=== PATIENT | male | born 2000 | race Caucasian/White ===

== ENCOUNTER 2022-04-13 10:40 | Inpatient (IN) ==
--- NOTE | 2022-04-13 11:11 | Emergency Department Note ---
History of Present Illness General Chief complaint: Weakness Stated complaint: NAUSEA, WEAKNESS, FAINT History of Present Illness Maximum Pain Intensity: 5 This is a 22-year-old male presenting to the emergency department with several complaints. He states that he has excessive thirst and urination. He is very fatigued, and feels like his fatigue is increasing over the past few weeks. The patient estimates that he is urinating every hour and is drinking more than a gallon of water every day. The patient recently began having emesis with eating or drinking, and now feels very weak and dehydrated. The patient does not have distinct pain anywhere, and considers himself usually healthy. He does report a history of celiac disease. He works out regularly and does not take medication on a regular basis. He does vape marijuana products. Minimal alcohol use. Home Medications Medication Instructions Recorded Confirmed Type Protein Powder 1 ea PO DIRECTED 04/13/22 04/13/22 History acetaminophen 325 mg tablet 650 mg PO QID PRN Pain 04/13/22 04/13/22 History (Tylenol) escitalopram oxalate 10 mg tablet 10 mg PO DAILY 04/13/22 04/13/22 History Allergies Allergy/AdvReac Type Severity Reaction Status Date / Time pollen extracts Allergy SNEEZING, Verified 04/13/22 15:21 ITCHY EYES gluten AdvReac celiac Verified 04/13/22 15:20 disease Laughing gas AdvReac Severe Nausea Uncoded 04/13/22 15:21 Past Med/Surg History Medical History Anxiety Celiac disease DKA, type 1 Marijuana user Nicotine dependence due to vaping tobacco product Surgical History No significant past surgical history Social History (Updated 04/13/22 @ 15:02 by Riley Johnson PA-C) Smoking Status: Current every day smoker Tobacco Type: E-cigarettes / Vaping Hx Alcohol Use: No Hx Substance Use: Yes (Marijuana) Preferred Language: Hebrew [employer] D[employer] Required: No Beliefs That Will Affect Care: None Current Living Situation: Family current occupational status: student Other Information That Helps Us Care for You: No Feels Safe at Home: Yes Safety Concerns: Feels Safe At This Time Physical Activity Frequency: Daily Do you think of yourself as: straight/heterosexual Sexual Orientation Comment: Monogamous girlfriend Review of Systems A total of 10 systems reviewed and were otherwise negative Physical Exam Vital Signs Vital Signs - 24 hr 04/13/22 10:50 04/13/22 11:26 04/13/22 11:26 Temperature 36.3 C L Temperature Source Temporal Artery Scan Pulse Rate 94 H Pulse Rate [Right Finger] 75 Respiratory Rate 18 15 Respiratory Effort / Characteristics Respiratory Depth Blood Pressure 135/89 Blood Pressure Mean 104 Pulse Oximetry 95 98 98 Oxygen Delivery Method Room Air Room Air Room Air Sepsis Recent Fever Within 48 Hours No Sepsis New/Unexplained Change in Mental Status No Sepsis Action Taken by Nursing No Action Required Pulse Oximetry Post Tiitration 04/13/22 11:37 04/13/22 13:16 Temperature Temperature Source Pulse Rate Pulse Rate [Right Finger] 77 Respiratory Rate 18 Respiratory Effort / Characteristics Non-Labored Respiratory Depth Normal Blood Pressure Blood Pressure Mean Pulse Oximetry 95 Oxygen Delivery Method Room Air Room Air Sepsis Recent Fever Within 48 Hours Sepsis New/Unexplained Change in Mental Status Sepsis Action Taken by Nursing Pulse Oximetry Post Tiitration 98 VITALS: Vitals are noted on the nurse's note and reviewed by myself. Vital signs stable. GENERAL: Ill appearing white male, who is clinically dehydrated. He has chapped lips and poor skin turgor. HEAD: Normocephalic atraumatic. EARS: External ear normal. External auditory canals clear, tympanic membranes pearly wick without erythema or effusion bilaterally. EYES: Pupils equal round and reactive to light and accommodation. Conjunctivae without injection, sclerae without icterus. Extraocular movements intact. NOSE: Patent, turbinates without inflammation or discharge. MOUTH: Mucous membranes dry. Tonsils are not enlarged. Pharynx without er ythema, blood, or exudate. Uvula midline. Airway patent. NECK: Supple without nuchal rigidity. No lymphadenopathy. No thyromegaly. Cervical spine is nontender. HEART: Regular rate and rhythm without murmurs gallops or rubs. LUNGS: Clear to auscultation bilaterally without wheezes, rales or rhonchi. No retractions or accessory muscle use. ABDOMEN: Positive normal bowel sounds x 4. Soft, nontender, without masses or organomegaly. No guarding or rebound tenderness. Course Administered Medications Insulin Human Regular 250 (units/ Sodium Chloride) 250 mls @ 5.4 mls/hr IV .Q24H [facility]; Protocol Stop: 05/13/22 12:44 Last Titration: 04/13/22 18:00 Dose: 5.4 units/hr, 5.4 mls/hr Documented By: DTT Co-signed By: RB Titration: 04/13/22 16:12 Dose: 5.4 units/hr, 5.4 mls/hr Documented By: DTT Co-signed By: BT Titration: 04/13/22 14:58 Dose: 5.4 units/hr, 5.4 mls/hr Documented By: MES Co-signed By: MH Titration: 04/13/22 13:56 Dose: 5.4 units/hr, 5.4 mls/hr Documented By: MES Co-signed By: MARTIN Admin: 04/13/22 12:50 Dose: 6.7 units/hr, 6.7 mls/hr Documented By: JORGE ALBERTO Co-signed By: MARTIN Potassium Chloride/Dextrose/Sod Cl (D5w And 1/2nss + 20meq Kcl) 20 meq in 1,000 mls @ 250 mls/hr IV .Q4H ANA Stop: 05/13/22 16:44 Last Admin: 04/13/22 16:50 Dose: 250 mls/hr Documented By: Admin: 04/13/22 16:48 Dose: Not Given Documented By: DTT Insulin Aspart (Insulin Aspart Per Unit) 0 units SC ACHS AAN Stop: 05/13/22 16:29 Last Admin: 04/13/22 16:47 Dose: Not Given Documented By: DTT Nicotine (Nicotine 21 Mg/24 Hr Tdsy) 21 mg TD QAM ANA Stop: 05/13/22 15:18 Last Admin: 04/13/22 17:24 Dose: Not Given Documented By: DTT Discontinued Medications Sodium Chloride (Nss 1000ml) 1,000 mls @ 999 mls/hr IV .Q1H1M ANA Stop: 04/13/22 13:07 Last Infusion: 04/13/22 13:28 Dose: 0 mls/hr Documented By: Admin: 04/13/22 12:24 Dose: 999 mls/hr Documented By: Infusion: 04/13/22 12:24 Dose: 999 mls/hr Documented By: Admin: 04/13/22 11:43 Dose: 999 mls/hr Documented By: MES Parenteral Electrolytes (Normosol-R) 1,000 mls @ 999 mls/hr IV .Q1H1M STA Stop: 04/13/22 14:20 Last Infusion: 04/13/22 14:39 Dose: 0 mls/hr Documented By: JORGE ALBERTO Admin: 04/13/22 13:27 Dose: 999 mls/hr Documented By: JORGE ALBERTO Parenteral Electrolytes (Normosol-R) 1,000 mls @ 250 mls/hr IV .Q4H ANA Stop: 05/13/22 15:18 Last Admin: 04/13/22 16:48 Dose: Not Given Documented By: MEHUL Menthol (Cough Drop (Sugar Free) Sheila 24 Sheila/1 Box) 1 sheila BUCCAL NOW STA Stop: 04/13/22 15:17 Last Admin: 04/13/22 16:46 Dose: 1 sheila Documented By: MEHUL Menthol (Cough Drop (Sugar Free) Sheila 24 Sheila/1 Box) 1 sheila BUCCAL NOW STA Stop: 04/13/22 15:20 Last Admin: 04/13/22 16:46 Dose: 1 sheila Documented By: MEHUL Miscellaneous (Stat Insulin Drip) 1 each N/A NOW STA Stop: 04/13/22 12:33 Last Admin: 04/13/22 13:19 Dose: Not Given Documented By: JORGE ALBERTO Miscellaneous (Pending D5 1/2ns+20meq Kcl Ivf) 1 each N/A Q2H [facility] Stop: 05/13/22 15:59 Last Admin: 04/13/22 16:48 Dose: Not Given Documented By: MEHUL Miscellaneous (Dka Goal Range 150-250 Mg/Dl) 1 each N/A ONE ONE Stop: 04/13/22 15:20 Last Admin: 04/13/22 16:46 Dose: 1 each Documented By: MEHUL Miscellaneous Information (Dc All Previously Ordered Diabetes Meds) 1 each N/A ONE ONE Stop: 04/13/22 15:20 Last Admin: 04/13/22 16:46 Dose: 1 each Documented By: MEHUL Ondansetron HCl (Ondansetron Inj 2 Mg/Ml 2 Ml Vial) 4 mg IV NOW STA Stop: 04/13/22 12:09 Last Admin: 04/13/22 12:14 Dose: 4 mg Documented By: JORGE ALBERTO Critical Care Time I have personally spent greater than 35 minutes of critical care time in the direct management of this patient. This includes bedside care, interpretation of diagnostic studies, and testing, discussion with consultants, patient, and family members, and other required patient management activities. This 35 minutes is in excess of all separately billable procedures. Medical Decision Making Differential Diagnosis Differential includes diabetes, acute coronary syndrome, myocardial infarction, CVA, TIA, anemia, infection, pneumonia, UTI, pyelonephritis, poor nutrition, dehydration, electrolyte disturbance,hypoglycemia. Laboratory Data Result diagrams: 04/13/22 11:20 04/13/22 15:48 Lab Results 04/13/22 04/13/22 04/13/22 Range/Units 11:20 11:20 11:20 WBC 11.48 H (4.8-10.8) K/ul RBC 6.06 (4.63-6.08) M/uL Hgb 17.3 (14.0-18.0) g/dl Hct 51.9 H (40.1-51.0) % MCV 85.6 (80.0-100.0) fL MCH 28.5 (25.0-34.0) pg MCHC 33.3 (32.0-36.0) g/dL RDW Std Deviation 39.3 (36.4-46.3) fL RDW Coeff of Juan 12.8 (11.5-14.5) % Plt Count 408 H (130-400) K/uL MPV 10.2 (9.4-12.4) fL Immature Gran % (Auto) 0.3 % Neut % (Auto) 81.5 % Lymph % (Auto) 15.2 % Long % (Auto) 2.5 % Eos % (Auto) 0.2 % Baso % (Auto) 0.3 % Neut # (Auto) 9.35 H (1.4-6.5) K/uL Lymph # (Auto) 1.74 (1.2-3.4) K/uL Long # (Auto) 0.29 (0.24-0.82) K/uL Eos # (Auto) 0.02 (0-0.50) K/uL Baso # (Auto) 0.04 (0-0.2) K/uL Immature Gran # (Auto) 0.04 H (0.00-0.02) K/uL VBG pH (7.36-7.41) VBG pCO2 (38-50) mmHg VBG pO2 mmHg VBG HCO3 mmol/L VBG O2 Saturation % VBG Base Excess mEq/L Sodium 143 (136-145) mmol/L Potassium 4.3 (3.5-5.1) mmol/L Chloride 98 (98-107) mmol/L Carbon Dioxide 13 L (21-32) mmol/L Anion Gap 32 H (3-11) BUN 23 (6-23) mg/dl Creatinine 1.24 (0.6-1.4) mg/dl Est Cr Clr Drug Dosing 89.2 ml/min Est GFR ( Amer) 95.7 ml/min Est GFR (Non-Af Amer) 82.6 ml/min BUN/Creatinine Ratio 18.5 (10-20) Glucose 484 H* (70-99(Fasting)) mg/dl POC Glucose (70-99) mg/dl Estimat Average Glucose mg/dl Hemoglobin A1c (4.5-5.6) % Calcium 10.9 H (8.5-10.1) mg/dl Magnesium 2.3 (1.7-2.4) mg/dl Total Bilirubin 0.5 (0.2-1.0) mg/dl AST 11 L (13-39) U/L ALT 14 (7-52) U/L Alkaline Phosphatase 104 (34-104) U/L Troponin I High Sens 4.1 (0-20) pg/ml Total Protein 9.8 H (6.0-8.3) gm/dl Albumin 5.6 H (3.4-5.0) gm/dl Globulin 4.2 H (2.5-4.0) gm/dl Albumin/Globulin Ratio 1.3 (0.9-2) Lipase 10 L (11-82) U/L TSH 0.462 (0.300-4.500) uIu/ml Urine Color Urine Appearance (Clear) Urine pH (4.5-7.5) Ur Specific [place] (1.000-1.030) Urine Protein (Negative) Urine Glucose (UA) (Negative) Urine Ketones (Negative) Urine Blood (Negative) Urine Nitrite (Negative) Urine Bilirubin (Negative) Urine Urobilinogen (Negative) Ur Leukocyte Esterase (Negative) Urine WBC (Auto) (0-5) /hpf Urine RBC (Auto) (0-4) /hpf U Hyaline Cast (Auto) (0-5) /lpf U Epithel Cells (Auto) (0-5) /lpf Urine Bacteria (Auto) (Negative) Urine Opiates Screen (Neg) Ur Methadone, Qual (Neg) Urine Barbiturates (Neg) Ur Phencyclidine (PCP) (Neg) U Amphetamin/Meth Scrn (Neg) MDMA (Ecstasy) Screen (Neg) U Benzodiazepines Scrn (Neg) Ur Cocaine Metabolite (Neg) U Marijuana (THC) Screen (Neg) Ethyl Alcohol mg/dL (<10.0) mg/dl Lyme Disease IgG Ab (Negative) Lyme Disease IgM Ab (Negative) Monoscreen (Negative) SARS-CoV-2, RNA, NAAT (NEGATIVE) 04/13/22 04/13/22 04/13/22 Range/Units 11:20 11:20 11:20 WBC (4.8-10.8) K/ul RBC (4.63-6.08) M/uL Hgb (14.0-18.0) g/dl Hct (40.1-51.0) % MCV (80.0-100.0) fL MCH (25.0-34.0) pg MCHC (32.0-36.0) g/dL RDW Std Deviation (36.4-46.3) fL RDW Coeff of Juan (11.5-14.5) % Plt Count (130-400) K/uL MPV (9.4-12.4) fL Immature Gran % (Auto) % Neut % (Auto) % Lymph % (Auto) % Long % (Auto) % Eos % (Auto) % Baso % (Auto) % Neut # (Auto) (1.4-6.5) K/uL Lymph # (Auto) (1.2-3.4) K/uL Long # (Auto) (0.24-0.82) K/uL Eos # (Auto) (0-0.50) K/uL Baso # (Auto) (0-0.2) K/uL Immature Gran # (Auto) (0.00-0.02) K/uL VBG pH (7.36-7.41) VBG pCO2 (38-50) mmHg VBG pO2 mmHg VBG HCO3 mmol/L VBG O2 Saturation % VBG Base Excess mEq/L Sodium (136-145) mmol/L Potassium (3.5-5.1) mmol/L Chloride (98-107) mmol/L Carbon Dioxide (21-32) mmol/L Anion Gap (3-11) BUN (6-23) mg/dl Creatinine (0.6-1.4) mg/dl Est Cr Clr Drug Dosing ml/min Est GFR ( Amer) ml/min Est GFR (Non-Af Amer) ml/min BUN/Creatinine Ratio (10-20) Glucose (70-99(Fasting)) mg/dl POC Glucose 440 H* (70-99) mg/dl Estimat Average Glucose mg/dl Hemoglobin A1c (4.5-5.6) % Calcium (8.5-10.1) mg/dl Magnesium (1.7-2.4) mg/dl Total Bilirubin (0.2-1.0) mg/dl AST (13-39) U/L ALT (7-52) U/L Alkaline Phosphatase (34-104) U/L Troponin I High Sens (0-20) pg/ml Total Protein (6.0-8.3) gm/dl Albumin (3.4-5.0) gm/dl Globulin (2.5-4.0) gm/dl Albumin/Globulin Ratio (0.9-2) Lipase (11-82) U/L TSH (0.300-4.500) uIu/ml Urine Color Urine Appearance (Clear) Urine pH (4.5-7.5) Ur Specific [place] (1.000-1.030) Urine Protein (Negative) Urine Glucose (UA) (Negative) Urine Ketones (Negative) Urine Blood (Negative) Urine Nitrite (Negative) Urine Bilirubin (Negative) Urine Urobilinogen (Negative) Ur Leukocyte Esterase (Negative) Urine WBC (Auto) (0-5) /hpf Urine RBC (Auto) (0-4) /hpf U Hyaline Cast (Auto) (0-5) /lpf U Epithel Cells (Auto) (0-5) /lpf Urine Bacteria (Auto) (Negative) Urine Opiates Screen (Neg) Ur Methadone, Qual (Neg) Urine Barbiturates (Neg) Ur Phencyclidine (PCP) (Neg) U Amphetamin/Meth Scrn (Neg) MDMA (Ecstasy) Screen (Neg) U Benzodiazepines Scrn (Neg) Ur Cocaine Metabolite (Neg) U Marijuana (THC) Screen (Neg) Ethyl Alcohol mg/dL < 10.0 (<10.0) mg/dl Lyme Disease IgG Ab Negative (Negative) Lyme Disease IgM Ab Negative (Negative) Monoscreen Positive A (Negative) SARS-CoV-2, RNA, NAAT (NEGATIVE) 04/13/22 04/13/22 04/13/22 Range/Units 11:20 11:20 11:20 WBC (4.8-10.8) K/ul RBC (4.63-6.08) M/uL Hgb (14.0-18.0) g/dl Hct (40.1-51.0) % MCV (80.0-100.0) fL MCH (25.0-34.0) pg MCHC (32.0-36.0) g/dL RDW Std Deviation (36.4-46.3) fL RDW Coeff of Juan (11.5-14.5) % Plt Count (130-400) K/uL MPV (9.4-12.4) fL Immature Gran % (Auto) % Neut % (Auto) % Lymph % (Auto) % Long % (Auto) % Eos % (Auto) % Baso % (Auto) % Neut # (Auto) (1.4-6.5) K/uL Lymph # (Auto) (1.2-3.4) K/uL Long # (Auto) (0.24-0.82) K/uL Eos # (Auto) (0-0.50) K/uL Baso # (Auto) (0-0.2) K/uL Immature Gran # (Auto) (0.00-0.02) K/uL VBG pH (7.36-7.41) VBG pCO2 (38-50) mmHg VBG pO2 mmHg VBG HCO3 mmol/L VBG O2 Saturation % VBG Base Excess mEq/L Sodium (136-145) mmol/L Potassium (3.5-5.1) mmol/L Chloride (98-107) mmol/L Carbon Dioxide (21-32) mmol/L Anion Gap (3-11) BUN (6-23) mg/dl Creatinine (0.6-1.4) mg/dl Est Cr Clr Drug Dosing ml/min Est GFR ( Amer) ml/min Est GFR (Non-Af Amer) ml/min BUN/Creatinine Ratio (10-20) Glucose (70-99(Fasting)) mg/dl POC Glucose (70-99) mg/dl Estimat Average Glucose 246 mg/dl Hemoglobin A1c 10.2 H (4.5-5.6) % Calcium (8.5-10.1) mg/dl Magnesium (1.7-2.4) mg/dl Total Bilirubin (0.2-1.0) mg/dl AST (13-39) U/L ALT (7-52) U/L Alkaline Phosphatase (34-104) U/L Troponin I High Sens (0-20) pg/ml Total Protein (6.0-8.3) gm/dl Albumin (3.4-5.0) gm/dl Globulin (2.5-4.0) gm/dl Albumin/Globulin Ratio (0.9-2) Lipase (11-82) U/L TSH (0.300-4.500) uIu/ml Urine Color Yellow Urine Appearance Clear (Clear) Urine pH 5.0 (4.5-7.5) Ur Specific [place] 1.032 H (1.000-1.030) Urine Protein 1+ H (Negative) Urine Glucose (UA) 3+ H (Negative) Urine Ketones 4+ H (Negative) Urine Blood Negative (Negative) Urine Nitrite Negative (Negative) Urine Bilirubin Negative (Negative) Urine Urobilinogen Negative (Negative) Ur Leukocyte Esterase Negative (Negative) Urine WBC (Auto) 1-5 (0-5) /hpf Urine RBC (Auto) 0-4 (0-4) /hpf U Hyaline Cast (Auto) 0 (0-5) /lpf U Epithel Cells (Auto) 5-10 H (0-5) /lpf Urine Bacteria (Auto) Negative (Negative) Urine Opiates Screen Neg (Neg) Ur Methadone, Qual Neg (Neg) Urine Barbiturates Neg (Neg) Ur Phencyclidine (PCP) Neg (Neg) U Amphetamin/Meth Scrn Neg (Neg) MDMA (Ecstasy) Screen Neg (Neg) U Benzodiazepines Scrn Neg (Neg) Ur Cocaine Metabolite Neg (Neg) U Marijuana (THC) Screen Pos H (Neg) Ethyl Alcohol mg/dL (<10.0) mg/dl Lyme Disease IgG Ab (Negative) Lyme Disease IgM Ab (Negative) Monoscreen (Negative) SARS-CoV-2, RNA, NAAT (NEGATIVE) 04/13/22 04/13/22 04/13/22 Range/Units 11:48 11:53 12:52 WBC (4.8-10.8) K/ul RBC (4.63-6.08) M/uL Hgb (14.0-18.0) g/dl Hct (40.1-51.0) % MCV (80.0-100.0) fL MCH (25.0-34.0) pg MCHC (32.0-36.0) g/dL RDW Std Deviation (36.4-46.3) fL RDW Coeff of Juan (11.5-14.5) % Plt Count (130-400) K/uL MPV (9.4-12.4) fL Immature Gran % (Auto) % Neut % (Auto) % Lymph % (Auto) % Long % (Auto) % Eos % (Auto) % Baso % (Auto) % Neut # (Auto) (1.4-6.5) K/uL Lymph # (Auto) (1.2-3.4) K/uL Long # (Auto) (0.24-0.82) K/uL Eos # (Auto) (0-0.50) K/uL Baso # (Auto) (0-0.2) K/uL Immature Gran # (Auto) (0.00-0.02) K/uL VBG pH 7.17 L (7.36-7.41) VBG pCO2 36 L (38-50) mmHg VBG pO2 37 mmHg VBG HCO3 13 mmol/L VBG O2 Saturation < 60.0 % VBG Base Excess -14.5 mEq/L Sodium (136-145) mmol/L Potassium (3.5-5.1) mmol/L Chloride (98-107) mmol/L Carbon Dioxide (21-32) mmol/L Anion Gap (3-11) BUN (6-23) mg/dl Creatinine (0.6-1.4) mg/dl Est Cr Clr Drug Dosing ml/min Est GFR ( Amer) ml/min Est GFR (Non-Af Amer) ml/min BUN/Creatinine Ratio (10-20) Glucose (70-99(Fasting)) mg/dl POC Glucose 403 H* (70-99) mg/dl Estimat Average Glucose mg/dl Hemoglobin A1c (4.5-5.6) % Calcium (8.5-10.1) mg/dl Magnesium (1.7-2.4) mg/dl Total Bilirubin (0.2-1.0) mg/dl AST (13-39) U/L ALT (7-52) U/L Alkaline Phosphatase (34-104) U/L Troponin I High Sens (0-20) pg/ml Total Protein (6.0-8.3) gm/dl Albumin (3.4-5.0) gm/dl Globulin (2.5-4.0) gm/dl Albumin/Globulin Ratio (0.9-2) Lipase (11-82) U/L TSH (0.300-4.500) uIu/ml Urine Color Urine Appearance (Clear) Urine pH (4.5-7.5) Ur Specific [place] (1.000-1.030) Urine Protein (Negative) Urine Glucose (UA) (Negative) Urine Ketones (Negative) Urine Blood (Negative) Urine Nitrite (Negative) Urine Bilirubin (Negative) Urine Urobilinogen (Negative) Ur Leukocyte Esterase (Negative) Urine WBC (Auto) (0-5) /hpf Urine RBC (Auto) (0-4) /hpf U Hyaline Cast (Auto) (0-5) /lpf U Epithel Cells (Auto) (0-5) /lpf Urine Bacteria (Auto) (Negative) Urine Opiates Screen (Neg) Ur Methadone, Qual (Neg) Urine Barbiturates (Neg) Ur Phencyclidine (PCP) (Neg) U Amphetamin/Meth Scrn (Neg) MDMA (Ecstasy) Screen (Neg) U Benzodiazepines Scrn (Neg) Ur Cocaine Metabolite (Neg) U Marijuana (THC) Screen (Neg) Ethyl Alcohol mg/dL (<10.0) mg/dl Lyme Disease IgG Ab (Negative) Lyme Disease IgM Ab (Negative) Monoscreen (Negative) SARS-CoV-2, RNA, NAAT NEGATIVE (NEGATIVE) 04/13/22 Range/Units 13:51 WBC (4.8-10.8) K/ul RBC (4.63-6.08) M/uL Hgb (14.0-18.0) g/dl Hct (40.1-51.0) % MCV (80.0-100.0) fL MCH (25.0-34.0) pg MCHC (32.0-36.0) g/dL RDW Std Deviation (36.4-46.3) fL RDW Coeff of Juan (11.5-14.5) % Plt Count (130-400) K/uL MPV (9.4-12.4) fL Immature Gran % (Auto) % Neut % (Auto) % Lymph % (Auto) % Long % (Auto) % Eos % (Auto) % Baso % (Auto) % Neut # (Auto) (1.4-6.5) K/uL Lymph # (Auto) (1.2-3.4) K/uL Long # (Auto) (0.24-0.82) K/uL Eos # (Auto) (0-0.50) K/uL Baso # (Auto) (0-0.2) K/uL Immature Gran # (Auto) (0.00-0.02) K/uL VBG pH (7.36-7.41) VBG pCO2 (38-50) mmHg VBG pO2 mmHg VBG HCO3 mmol/L VBG O2 Saturation % VBG Base Excess mEq/L Sodium (136-145) mmol/L Potassium (3.5-5.1) mmol/L Chloride (98-107) mmol/L Carbon Dioxide (21-32) mmol/L Anion Gap (3-11) BUN (6-23) mg/dl Creatinine (0.6-1.4) mg/dl Est Cr Clr Drug Dosing ml/min Est GFR ( Amer) ml/min Est GFR (Non-Af Amer) ml/min BUN/Creatinine Ratio (10-20) Glucose (70-99(Fasting)) mg/dl POC Glucose 308 H* (70-99) mg/dl Estimat Average Glucose mg/dl Hemoglobin A1c (4.5-5.6) % Calcium (8.5-10.1) mg/dl Magnesium (1.7-2.4) mg/dl Total Bilirubin (0.2-1.0) mg/dl AST (13-39) U/L ALT (7-52) U/L Alkaline Phosphatase (34-104) U/L Troponin I High Sens (0-20) pg/ml Total Protein (6.0-8.3) gm/dl Albumin (3.4-5.0) gm/dl Globulin (2.5-4.0) gm/dl Albumin/Globulin Ratio (0.9-2) Lipase (11-82) U/L TSH (0.300-4.500) uIu/ml Urine Color Urine Appearance (Clear) Urine pH (4.5-7.5) Ur Specific [place] (1.000-1.030) Urine Protein (Negative) Urine Glucose (UA) (Negative) Urine Ketones (Negative) Urine Blood (Negative) Urine Nitrite (Negative) Urine Bilirubin (Negative) Urine Urobilinogen (Negative) Ur Leukocyte Esterase (Negative) Urine WBC (Auto) (0-5) /hpf Urine RBC (Auto) (0-4) /hpf U Hyaline Cast (Auto) (0-5) /lpf U Epithel Cells (Auto) (0-5) /lpf Urine Bacteria (Auto) (Negative) Urine Opiates Screen (Neg) Ur Methadone, Qual (Neg) Urine Barbiturates (Neg) Ur Phencyclidine (PCP) (Neg) U Amphetamin/Meth Scrn (Neg) MDMA (Ecstasy) Screen (Neg) U Benzodiazepines Scrn (Neg) Ur Cocaine Metabolite (Neg) U Marijuana (THC) Screen (Neg) Ethyl Alcohol mg/dL (<10.0) mg/dl Lyme Disease IgG Ab (Negative) Lyme Disease IgM Ab (Negative) Monoscreen (Negative) SARS-CoV-2, RNA, NAAT (NEGATIVE) ECG Data Attestation: I personally reviewed and interpreted this ECG as follows: Indication: + weakness Additional Comments: Sinus bradycardia with marked sinus arrhythmia @[address] elevation RSR' or QR pattern in V1 suggests right ventricular conduction delay Borderline ECG No previous ECGs available MDM Narrative Physical exam and history were performed. Nursing notes, EMR, and Medication List were personally reviewed. Patient appears to have excessive thirst and urination. He has weight loss and recently began with emesis. He appears clinically very dehydrated and his story is quite concerning for diabetes. IV access was established and labs were obtained. He was hydrated with 2 L of normal saline immediately and given IV Zofran for his nausea. The patient's blood work is as above and was reviewed. He does have a slightly elevated white blood cell count of 11,000. He does not have a significant anemia. [id number] glucose was over 400 in the ER, and his lab glucose was 484. He is quite acidotic on VBG at 7.17. He has a notable anion gap of 32. Lipase and transaminases are not diagnostic. Troponin x1 is negative. TSH is euthyroid. Urine is with glucose and ketones. Overall the patient does not appear well for discharge home. He is critically ill and will require hospitalization. The case was discussed with my attending who remained involved in care and decision making. I did additionally speak with the patient's mother by telephone, who will be driving to this facility from [place]. The patient is highly concerning for DKA. He may have been able to compensate recently with fluids and activity, however with his vomiting recently he appears quite ill. He was started on an IV insulin drip and given additional fluids. The case was discussed with the on-call hospitalist team, as well as with the on-call ICU provider. Please see their dictation for further patient course, plan, and disposition. The chart was completed utilizing [employer] Voice [employer]ognition Software. Grammatical errors, random word insertions, pronoun errors, and incomplete sentences are an occasional consequence of this system due to software limit ations, ambient noise, and hardware issues. Any formal questions or concerns about the content, text, or information contained within the body of this dictation should be directly addressed to the provider for clarification. . Impression & Plan DKA, type 1, Marijuana user, Anxiety, Acute hyperglycemia, New onset type 1 diabetes mellitus, uncontrolled Discharge Plan Visit Data Chief Complaint: Weakness Stated Complaint: NAUSEA, WEAKNESS, FAINT ED Provider: [facility] ED Midlevel Provider: Casimiro Avila Discharge Problem: DKA, type 1, Marijuana user, Anxiety, Acute hyperglycemia, New onset type 1 diabetes mellitus, uncontrolled Patient Disposition: Admitted As Inpatient Discharge Instructions Interventions: ED Discharge Assessment Last Done: 04/13/22 15:36
[2022-04-13 11:32] LABS: Basophils # (auto) 0.04 K/uL (0-0.2); Basophils % (auto) 0.3 %; Eosinophils # (auto) 0.02 K/uL (0-0.50); Eosinophils % (auto) 0.2 %; Hematocrit (blood only) 51.9 % (40.1-51.0); Hemoglobin 17.3 g/dl (14.0-18.0); Immature Granulocytes # (auto) 0.04 K/uL (0.00-0.02); Immature Granulocytes % (auto) 0.3 %; Lymphocytes # (auto) 1.74 K/uL (1.2-3.4); Lymphocytes % (auto) 15.2 %; Mean Corpuscular Hemoglobin 28.5 pg (25.0-34.0); Mean Corpuscular Hgb Conc 33.3 g/dL (32.0-36.0); Mean Corpuscular Volume 85.6 fL (80.0-100.0); Mean Platelet Volume 10.2 fL (9.4-12.4); Monocytes # (auto) 0.29 K/uL (0.24-0.82); Monocytes % (auto) 2.5 %; Neutrophils # (auto) 9.35 K/uL (1.4-6.5); Neutrophils % (auto) 81.5 %; Platelet Count 408 K/uL (130-400); RDW Coefficient of Variation 12.8 % (11.5-14.5); RDW Standard Deviation 39.3 fL (36.4-46.3); Red Blood Count 6.06 M/uL (4.63-6.08); White Blood Count 11.48 K/ul (4.8-10.8)
[2022-04-13] MEDS: SODIUM CHLORIDE 0.9% 1000ML 1,000 ML IV SCH ×2 (11:43→12:24)
[2022-04-13 11:44] LABS: Appearance Urine Clear (Clear); Bacteria Urine Automated Negative (Negative); Bilirubin Urine Negative (Negative); Blood Urine Negative (Negative); Cast Urine Automated 0 /lpf (0-5); Color Urine Yellow; Glucose Urine UA 3+ (Negative); Ketones Urine 4+ (Negative); Leukocyte Esterase Urine Negative (Negative); Nitrite Urine Negative (Negative); Protein Urine 1+ (Negative); RBC Urine Automated 0-4 /hpf (0-4); Specific Gravity Urine 1.032 (1.000-1.030); Urobilinogen Urine Negative (Negative)
[2022-04-13 11:58] LABS: Monotest Positive (Negative)
[2022-04-13] MEDS ORDERED: ONDANSETRON INJ 2 MG/ML 2 ML VIAL IV STA (12:08)
[2022-04-13 12:18] LABS: Albumin Globulin Ratio 1.3 (0.9-2); Albumin Level 5.6 gm/dl (3.4-5.0); Amphetamines+Metham, Urine Neg (Neg); BUN Creatinine Ratio 18.5 (10-20); Barbiturates, Urine Neg (Neg); Benzodiazepine, Urine Neg (Neg); Bilirubin,Total 0.5 mg/dl (0.2-1.0); Calcium 10.9 mg/dl (8.5-10.1); Cocaine, Urine Neg (Neg); Creatinine Clr Calc Pharmacy 89.2 ml/min; Est GFR (African American) 95.7 ml/min; Est GFR (Non-African American) 82.6 ml/min; Globulin 4.2 gm/dl (2.5-4.0); MDMA (Ecstacy), Urine Neg (Neg); Magnesium 2.3 mg/dl (1.7-2.4); Methadone, Urine Neg (Neg); Opiate, Urine Neg (Neg); Phencyclidine, Urine Neg (Neg); Potassium 4.3 mmol/L (3.5-5.1); Total Protein 9.8 gm/dl (6.0-8.3)
[2022-04-13 12:21] LABS: Lyme Ab IgG w/WB Rflx Negative (Negative); Lyme Ab IgM w/WB Rflx Negative (Negative)
[2022-04-13 12:24] LABS: Troponin I High Sensitivity 4.1 pg/ml (0-20)
[2022-04-13] MEDS ORDERED: STAT INSULIN DRIP STA (12:32)
[2022-04-13] MEDS ORDERED: DEXTROSE 50% 50 ML SYRINGE IV PRN (12:32)
[2022-04-13] MEDS ORDERED: GLUCOSE 10 TAB/TUBE PO PRN (12:32)
[2022-04-13] MEDS ORDERED: GLUCAGON FOR INJ 1 MG VIAL SQ PRN (12:32)
[2022-04-13] MEDS ORDERED: GLUCOSE 40% GEL 15 GM TUBE PO PRN (12:32)
[2022-04-13] MEDS ORDERED: CARBOHYDRATES FOR HYPOGLYCEMIA PO PRN (12:32)
[2022-04-13 12:37] LABS: Base Excess VBG -14.5 mEq/L; HCO3 VBG 13 mmol/L; Oxygen Saturation VBG < 60.0 %; PCO2 VBG 36 mmHg (38-50); PO2 VBG 37 mmHg; pH VBG 7.17 (7.36-7.41)
[2022-04-13] MEDS ORDERED: INSULIN REGULAR 250 UNITS in SODIUM CHLORIDE 0.9% 247.5 ML IV SCH ×2 (12:45→15:19)
[2022-04-13 13:20] LABS: Estimated Average Glucose 246 mg/dl; Hemoglobin A1C 10.2 % (4.5-5.6)
[2022-04-13] MEDS ORDERED: NORMOSOL-R 1,000 ML IV STA (13:20)
--- NOTE | 2022-04-13 13:58 | Electrocardiogram Report ---
Test Reason : Blood Pressure : / mmHG Vent. Rate : 057 BPM Atrial Rate : 057 BPM P-R Int : 120 ms QRS Dur : 100 ms QT Int : 492 ms P-R-T Axes : 064 068 051 degrees QTc Int : 478 ms Sinus bradycardia with marked sinus arrhythmia RSR' or QR pattern in V1 suggests right ventricular conduction delay Borderline ECG No previous ECGs available Confirmed by Foreign Lombardi ([id number]) on 04/13/2022 1:57:44 PM Referred By: Confirmed By:Foreign Lombardi
--- NOTE | 2022-04-13 15:05 | History & Physical Report ---
Date of Service April 13, 2022 Assessment & Plan (1) DKA, type 1: Plan: Attending: Dr. 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 He denies a history of diabetes mellitus but presents with a hemoglobin A1c of 10.2 and elevated glucose at over 400. Patient has a history of celiac disease and nicotine dependence via vaping. He also admits to daily marijuana usage by vaping. Patient has no significant p rior surgical history. No other significant past medical history other than anxiety. Patient is on escitalopram for anxiety. Otherwise, no daily medications. Patient's father has diabetes mellitus type 1. No other first- degree relatives with diabetes that the patient is aware of. Will admit the patient to telemetry unit for monitoring Will start insulin drip and titrate per protocol Patient received IV fluids for total 23 L in the emergency department. We will initiate Normosol at 250 mL/hr on admission Every hour BSG while on insulin drip Keep patient n.p.o. Every 4 hour labs to monitor electrolytes and anion gap At this time we will hold off on endocrinology consult. Patient will need endocrinology follow-up on discharge as an outpatient (2) Anxiety: Plan: Patient with use of Escitalopram 10 mg daily. We will continue this during this hospital stay Patient uses nicotine and marijuana for anxiety relief on a daily basis Continue supportive dialogue of encouragement (3) Marijuana user: Plan: Patient vapes marijuana daily. Encourage patient to abstain from illicit drug use (4) Nicotine dependence due to vaping tobacco product: Plan: Patient was previously a cigarette smoker. He is transition to vaping Currently inhales 20 reps per day Will prescribe nicotine patch 21 mg daily to be removed each night HS Encourage complete abstinence of nicotine products (5) Celiac disease: Plan: Patient not on steroids or any other medicinal management of celiac disease Once patient can transition to orals will list for gluten-free diet Continue outpatient management (6) DVT prophylaxis: Plan: Will order SCDs and knee-high CHRISTIANNE stockings Ambulate as tolerated History of Present Illness Chief Complaint: Weakness, hyperglycemia Primary Care Provider: [facility] Attending: Dr. 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 Over the last 2 weeks he has noticed that he has had increased thirst and has felt nauseous. He presented today and was found to have hyperglycemia with a BSG above 400. Patient has no history of diabetes mellitus but his father is a type I diabetic. Patient does state that he has celiac disease and that he also had previous history of thyroid issues but is not on any thyroid replacement. Patient has no other significant past medical history. He is fit with a BMI of 18.9 kg/m and is weight appropriate. He goes to the gym daily for routine exercise. He states that he follows a fairly strict diet due to celiac disease. He denies any Crohn's disease or other gastroenterological disorder. He has not any prescribed diet but does watch what he eats. Patient has no significant surgical history. Patient has no prior history of illicit drug use other than marijuana which he vapes on a daily basis. Patient is also a previous smoker who has transition to vaping nicotine with 20 "rips" per day. Patient has no acute complaints other than extreme thirst and dry mouth. He denies any chest pain or tightness. He denies palpitations. He is unaware of a ny cardiac arrhythmia. He has no significant neuropathy. He denies history of cardiomyopathy, nephropathy, retinopathy. Patient has no other acute complaints at this time. Allergies Allergy/AdvReac Type Severity Reaction Status Date / Time pollen extracts Allergy SNEEZING, Verified 04/13/22 15:21 ITCHY EYES gluten AdvReac celiac Verified 04/13/22 15:20 disease Laughing gas AdvReac Severe Nausea Uncoded 04/13/22 15:21 Home Medications Medication Instructions Recorded Confirmed Type Protein Powder 1 ea PO DIRECTED 04/13/22 04/13/22 History acetaminophen 325 mg tablet 650 mg PO QID PRN Pain 04/13/22 04/13/22 History (Tylenol) escitalopram oxalate 10 mg tablet 10 mg PO DAILY 04/13/22 04/13/22 History Past Med/Surg History Medical History Anxiety Celiac disease DKA, type 1 Marijuana user Nicotine dependence due to vaping tobacco product Surgical History No significant past surgical history Social History (Updated 04/13/22 @ 15:02 by Riley Johnson PA-C) Smoking Status: Current every day smoker Tobacco Type: E-cigarettes / Vaping Hx Alcohol Use: No Hx Substance Use: Yes (Marijuana) Preferred Language: Greek 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 Pleasant. Talkative. EYES: No icterus, gaze conjugate. Pupils are equal but dilated. They do constrict slightly. NOSE: No evidence of epistaxis MOUTH: No lesions or candidiasis. Mucosa is moist. Tongue is midline. Patient appears to have good oral hygiene NECK: Supple. No stridor or cervical lymphadenopathy LUNGS: CTA B/L, no wheezes, rales or rhonchi. Good inspirational effort HEART: Regular, rate controlled ABDOMEN: Soft, NT, ND, BS Present. No rebound tenderness or guarding EXTREMITIES: No LE edema, pedal pulses intact and equal bilaterally NEURO: A&OX3. Pupils equal round and reactive to light. Tongue is midline. All 4 extremities move spontaneously. Patient with 4/4 reflexes to the brachial radialis and patellar tendons. Strength is equal and appropriate bilaterally. Toes are downgoing bilaterally. No slurred speech. Cranial nerves II through XII grossly intact without focal deficit. Patient has good sensation to upper and lower extremities. Results & Data Results & Data ([facility]) Vital Signs (Past 12 Hours) Vital Signs Temp Pulse Pulse Resp BP Pulse Ox O2 Del Method 04/13/22 13:16 77 18 95 Room Air 04/13/22 11:37 Room Air 04/13/22 11:26 98 Room Air 04/13/22 11:26 75 15 98 Room Air 04/13/22 10:50 36.3 C L 94 H 18 135/89 95 Room Air Critical Care Results & Data Vital Signs (Past 12 Hours) Vital Signs Temp Pulse Pulse Resp BP Pulse Ox O2 Del Method 04/13/22 13:16 77 18 95 Room Air 04/13/22 11:37 Room Air 04/13/22 11:26 98 Room Air 04/13/22 11:26 75 15 98 Room Air 04/13/22 10:50 36.3 C L 94 H 18 135/89 95 Room Air Lab & Micro Results (Past 24 Hours) RBC 6.06 M/uL (4.63-6.08) 04/13/22 WBC 11.48 K/ul (4.8-10.8) H 04/13/22 Hgb 17.3 g/dl (14.0-18.0) 04/13/22 Hct 51.9 % (40.1-51.0) H 04/13/22 MCV 85.6 fL (80.0-100.0) 04/13/22 MCH 28.5 pg (25.0-34.0) 04/13/22 MCHC 33.3 g/dL (32.0-36.0) 04/13/22 RDW Standard Deviation 39.3 fL (36.4-46.3) 04/13/22 RDW Coefficient of Variation 12.8 % (11.5-14.5) 04/13/22 Plt Count 408 K/uL (130-400) H 04/13/22 MPV 10.2 fL (9.4-12.4) 04/13/22 Neutrophils (%) (Auto) 81.5 % 04/13/22 Lymphocytes (%) (Auto) 15.2 % 04/13/22 Monocytes # (Auto) 0.29 K/uL (0.24-0.82) 04/13/22 Eosinophils # (Auto) 0.02 K/uL (0-0.50) 04/13/22 Immature Granulocyte % (Auto) 0.3 % 04/13/22 Neutrophils # (Auto) 9.35 K/uL (1.4-6.5) H 04/13/22 Lymphocytes # (Auto) 1.74 K/uL (1.2-3.4) 04/13/22 Monocytes # (Auto) 0.29 K/uL (0.24-0.82) 04/13/22 Eosinophils # (Auto) 0.02 K/uL (0-0.50) 04/13/22 Basophils # (Auto) 0.04 K/uL (0-0.2) 04/13/22 Immature Granulocyte # (Auto) 0.04 K/uL (0.00-0.02) H 04/13 Na 136 mmol/L (136-145) 04/14/22 K 4.2 mmol/L (3.5-5.1) 04/14/22 Cl 107 mmol/L (98-107) 04/14/22 CO2 22 mmol/L (21-32) 04/14/22 Anion Gap 7 (3-11) 04/14/22 BUN 11 mg/dl (6-23) 04/14/22 Creatinine 0.71 mg/dl (0.6-1.4) 04/14/22 Estimated GFR ( Amer) > 150.0 ml/min 04/14/22 Estimated GFR (Non-Af Amer) 134.1 ml/min 04/14/22 BUN/Creatinine Ratio 15.5 (10-20) 04/14/22 Glu 264 mg/dl (70-99(Fasting)) H 04/14/22 Ca 8.7 mg/dl (8.5-10.1) 04/14/22 Phosphorus Level 2.0 mg/dl (2.5-4.9) L 04/14/22 Total Bilirubin 0.5 mg/dl (0.2-1.0) 04/13/22 AST 11 U/L (13-39) L 04/13/22 ALT 14 U/L (7-52) 04/13/22 Alkaline Phosphatase 104 U/L (34-104) 04/13/22 TP 9.8 gm/dl (6.0-8.3) H 04/13/22 Albumin 5.6 gm/dl (3.4-5.0) H 04/13/22 Globulin 4.2 gm/dl (2.5-4.0) H 04/13/22 Albumin/Globulin Ratio 1.3 (0.9-2) 04/13/22 Mg 1.6 mg/dl (1.7-2.4) L 04/14/22 06:34 Calcium Level 8.7 mg/dl (8.5-10.1) 04/14/22 06:34 Venous Blood pH 7.35 (7.36-7.41) L 04/14/22 06:34 Venous Blood Partial Pressure CO2 36 mmHg (38-50) L 04/13/22 11 :53 Venous Blood Partial Pressure O2 37 mmHg 04/13/22 11:53 Venous Blood HCO3 13 mmol/L 04/13/22 11:53 Venous Blood Base Excess -14.5 mEq/L 04/13/22 11:53 Venous Blood Oxygen Saturation < 60.0 % 04/13/22 11:53 Arterial Blood pH 7.31 (7.35-7.45) L 04/13/22 15:48 Arterial Blood Partial Pressure CO2 26 mmHg (35-46) L 04/13/22 15:48 Arterial Blood Partial Pressure O2 108 mmHg (80-95) H 04/13/22 15:48 Arterial Blood HCO3 13 mmol/L (19-24) L 04/13/22 15:48 Arterial Blood Base Excess -11.5 mEq/L (-9-1.8) L 04/13/22 15:4 8 Arterial Blood Oxygen Saturation 97.3 % (90-95) H 04/13/22 15:4 8 Blood Gas Oxygen Given 04/13/22 15:48 Keith Test POS (Pos) 04/13/22 15:48 I & O Totals 24 Hours 04/12/22 04/13/22 04/14/22 06:59 06:59 06:59 Intake Total 2695.60 / 2695.60 Balance 2695.60 / 2695.60 Cumulative 04/13/22 10:40 thru 04/13/22 14:58 Intake Total 2695.60 Balance 2695.60 RT Ventilator Mngmt (Last Documented) Ventilator Ordered Settings Respiratory Rate 18 04/13/22 13:16 Ventilator - PT Measurements Respiratory Rate 18 Medications Administered Patient received 3 L of IV fluids so far this admission. And insulin drip has been initiated ECG Additional Comments: Vent. Rate : 057 BPM Atrial Rate : 057 BPM P-R Int : 120 ms QRS Dur : 100 ms QT Int : 492 ms P-R-T Axes : 064 068 051 degrees QTc Int : 478 ms Sinus bradycardia with marked sinus arrhythmia RSR' or QR pattern in V1 suggests right ventricular conduction delay Borderline ECG No previous ECGs available Confirmed by Foreign Lombardi ([id number]) on 04/13/2022 1:57:44 PM Code Status & VTE Plan Code Status Level I: Full resuscitation VTE Prophylaxis Plan VTE Prophylaxis will be ordered: Yes Critical Care Time Critical Care Time: Yes Total Critical Care Time: 45 45 Supervising Physician Co-Signing Physician Notes I personally saw and examined the patient. I verified all lujan points and agree with STUART Wright with the following exceptions and/or additions: 22 year old male with celiac's disease presents with fatigue, polyuria and polydipsia. Labs consistent with DKA on admission. O/E HS1+2, no murmurs, RRR, Chest CTAB, Abdo SNT A/P DKA - anion gap subsequently closed. D5 0.5 NSS + KCl reduced to 125ml/hr. Discussed with pharmacy and will give lantus 20 units now and continue IV insulin as needed overnight. Diet ordered with Novolog carb coverage. PG Care Time/CCT Total # of Minutes Spent Total Time Spent with Patient: Total time spent is greater than 50% in coordination of care (as documented) at patient's floor/unit and/or counseling patient: Critical Care Time: Yes Total Critical Care Time: 45 45 minutes. Patient in DKA. Anion gap of 32. This was a life or limb admission event Coding Level of Care Code 60867 Initial Inpt Care Lvl 3 Diagnoses DKA, type 1 E10.10 Anxiety F41.9 Marijuana user F12.90 Nicotine dependence due to vaping tobacco product F17.290 Celiac disease K90.0 DVT prophylaxis Z29.9 Additional Codes Critical Care Time - Critical Care Time: Yes ([id number]) Time Spent (min) 60
[2022-04-13] MEDS ORDERED: NORMOSOL-R 1,000 ML IV SCH ×2 (15:15→15:19)
[2022-04-13] MEDS ORDERED: COUGH DROP (SUGAR FREE) LOZ 24 LOZ/1 BOX BUCCAL STA ×2 (15:16→15:19)
[2022-04-13] MEDS ORDERED: MAGNESIUM HYDROXIDE SUSP 30 ML UDC PO PRN (15:19)
[2022-04-13] MEDS ORDERED: COUGH DROP (SUGAR FREE) LOZ 24 LOZ/1 BOX BUCCAL PRN (15:19)
[2022-04-13] MEDS ORDERED: ACETAMINOPHEN 325 MG TAB PO PRN (15:19)
[2022-04-13] MEDS ORDERED: PHARMACY GLYCEMIC MGMT CONSULT PRN (15:19)
[2022-04-13] MEDS ORDERED: DC ALL PREVIOUSLY ORDERED DIABETES MEDS ONE (15:19)
[2022-04-13] MEDS ORDERED: ONDANSETRON INJ 2 MG/ML 2 ML VIAL IV PRN (15:19)
[2022-04-13] MEDS ORDERED: STAT IV Infusion **Titration per Protocol STA (15:19)
[2022-04-13] MEDS ORDERED: ALUMINUM/MAGNESIUM SUSP 30 ML UDC PO PRN (15:19)
[2022-04-13] MEDS ORDERED: DKA GOAL RANGE 150-250 mg/dl ONE (15:19)
[2022-04-13 16:00] LABS: Base Excess ABG -11.5 mEq/L (-9-1.8); HCO3 ABG 13 mmol/L (19-24); Oxygen Saturation ABG 97.3 % (90-95); PCO2 ABG 26 mmHg (35-46); PO2 ABG 108 mmHg (80-95); pH ABG 7.31 (7.35-7.45)
[2022-04-13] MEDS ORDERED: PENDING D5 1/2NS+20mEq KCL IVF SCH (16:00)
[2022-04-13 16:07] LABS: Allen Test POS (Pos)
[2022-04-13] MEDS ORDERED: INSULIN ASPART PER UNIT SC SCH (16:30)
[2022-04-13] MEDS: INSULIN ASPART PER UNIT SC SCH ×3 (16:47→21:08)
[2022-04-13] MEDS: D5W AND 1/2NSS + 20MEQ KCL 20 MEQ/1,000 ML BAG IV SCH ×3 (16:48→21:22)
[2022-04-13] MEDS: NICOTINE 21 MG/24 HR TDSY TD SCH (17:24)
[2022-04-13 17:50] LABS: BUN Creatinine Ratio 18.2 (10-20); Creatinine Clr Calc Pharmacy 125.6 ml/min; Est GFR (African American) 142.3 ml/min; Est GFR (Non-African American) 122.8 ml/min; Magnesium 2.1 mg/dl (1.7-2.4); Phosphorus 2.6 mg/dl (2.5-4.9)
[2022-04-13 19:32] LABS: BUN Creatinine Ratio 15.9 (10-20); Calcium 8.9 mg/dl (8.5-10.1); Creatinine Clr Calc Pharmacy 134.8 ml/min; Est GFR (African American) 146.5 ml/min; Est GFR (Non-African American) 126.4 ml/min; Magnesium 1.9 mg/dl (1.7-2.4); Phosphorus 1.7 mg/dl (2.5-4.9); Potassium 3.9 mmol/L (3.5-5.1)
[2022-04-13] MEDS ORDERED: LANTUS PER UNIT CHARGE SQ ONE (20:15)
[2022-04-13 23:47] LABS: Anion Gap 6 (3-11); Blood Urea Nitrogen 12 mg/dl (6-23); Calcium 9.3 mg/dl (8.5-10.1); Carbon Dioxide 23 mmol/L (21-32); Chloride 110 mmol/L (98-107); Creatinine Clr Calc Pharmacy 147.4 ml/min; Est GFR (African American) > 150.0 ml/min; Est GFR (Non-African American) 131.1 ml/min; Glucose 155 mg/dl (70-99(Fasting)); Magnesium 1.9 mg/dl (1.7-2.4); Phosphorus 1.6 mg/dl (2.5-4.9); Potassium 3.5 mmol/L (3.5-5.1); Sodium 139 mmol/L (136-145)
[2022-04-14] MEDS: INSULIN ASPART PER UNIT SC SCH ×7 (00:16→23:12)
[2022-04-14] MEDS ORDERED: POTASSIUM CHLORIDE CRTAB 20 MEQ TABCR PO STA (01:11)
[2022-04-14 04:01] LABS: Anion Gap 5 (3-11); Blood Urea Nitrogen 12 mg/dl (6-23); Calcium 8.9 mg/dl (8.5-10.1); Carbon Dioxide 23 mmol/L (21-32); Chloride 108 mmol/L (98-107); Creatinine Clr Calc Pharmacy 147.4 ml/min; Est GFR (African American) > 150.0 ml/min; Est GFR (Non-African American) 131.1 ml/min; Glucose 195 mg/dl (70-99(Fasting)); Magnesium 1.8 mg/dl (1.7-2.4); Phosphorus 2.5 mg/dl (2.5-4.9); Potassium 4.3 mmol/L (3.5-5.1); Sodium 136 mmol/L (136-145)
[2022-04-14] MEDS: D5W AND 1/2NSS + 20MEQ KCL 20 MEQ/1,000 ML BAG IV SCH (05:19)
[2022-04-14] MEDS: SODIUM CHLORIDE 0.45 % 1,000 ML IV SCH ×2 (05:55→17:04)
--- NOTE | 2022-04-14 05:58 | Communication Note ---
Date of Service: April 14, 2022 transitioned off drip successfully. gap closed since last night. kept d5 1/2 nss + kcl at 125 overnight as bsgs stayed at 160 most of the night. Provided 40meq PO KCl. At 6AM, repeat BSG 180 and K 4.3, so changing fluids to 1/2nss (no added kcl) at 100/hr. Please note that patient received 20u Lantus as a one time dose last night and currently there is no basal insulin ordered. Will need as he is type 1 diabetic. Pharmacy glycemic consult is active.
[2022-04-14 08:18] LABS: Anion Gap 7 (3-11); Magnesium 1.6 mg/dl (1.7-2.4)
[2022-04-14 08:54] LABS: BUN Creatinine Ratio 15.5 (10-20); Blood Urea Nitrogen 11 mg/dl (6-23); Calcium 8.7 mg/dl (8.5-10.1); Carbon Dioxide 22 mmol/L (21-32); Chloride 107 mmol/L (98-107); Est GFR (African American) > 150.0 ml/min; Est GFR (Non-African American) 134.1 ml/min; Glucose 264 mg/dl (70-99(Fasting)); Potassium 4.2 mmol/L (3.5-5.1); Sodium 136 mmol/L (136-145)
[2022-04-14] MEDS ORDERED: LANTUS PER UNIT CHARGE SQ ONE ×2 (09:00→18:00)
--- NOTE | 2022-04-14 09:50 | Electrocardiogram Report ---
Test Reason : Blood Pressure : / mmHG Vent. Rate : 059 BPM Atrial Rate : 059 BPM P-R Int : 102 ms QRS Dur : 098 ms QT Int : 418 ms P-R-T Axes : 033 073 049 degrees QTc Int : 413 ms Sinus bradycardia with sinus arrhythmia with short MT RSR' or QR pattern in V1 suggests right ventricular conduction delay Early repolarization Borderline ECG When compared with ECG of 13-APR-2022 11:20, Early repolarization is more pronounced; no obvious MT depression or reciprocal changes Confirmed by Corby Curry ([id number]) on 04/14/2022 9:50:01 AM Referred By: REFERRED SELF Confirmed By:Corby Curry
--- NOTE | 2022-04-14 09:58 | Hospitalist Progress Note ---
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 He denies a history of diabetes mellitus but presents with a hemoglobin A1c of 10.2 and elevated glucose at over 400. Patient has a history of celiac disease and nicotine dependence via vaping. He also admits to daily marijuana usage by vaping. Patient has no significant prior surgical history. No other significant past medical history other than anxiety. Patient is on escitalopram for anxiety. Otherwise, no daily medications. Patient's father has diabetes mellitus type 1. No other first-degree relatives with diabetes that the patient is aware of. Continue to monitor patient on telemetry Continue IVF, encourage patient to increase oral intake of liquids and food as tolerated Pharmacy consult will continue to manage insulin regimen Every 4 labs to monitor electrolytes and anion gap Patient will establish care with local PCP and consider need for endocrinology follow-up on discharge as an outpatient (2) Anxiety: Plan: Patient with use of E citalopram 10 mg daily. We will continue this during this hospital stay Patient uses nicotine and marijuana for anxiety relief on a daily basis Continue supportive dialogue of encouragement (3) Marijuana user: Plan: Patient vapes marijuana daily. Encourage patient to abstain from illicit drug use (4) Nicotine dependence due to vaping tobacco product: Plan: Patient was previously a cigarette smoker. He is transition to vaping Currently inhales 20 reps per day Will prescribe nicotine patch 21 mg daily to be removed each night HS Encourage complete abstinence of nicotine products (5) Celiac disease: Plan: Patient not on steroids or any other medicinal management of celiac disease Once patient can transition to orals will list for gluten-free diet Continue outpatient management (6) DVT prophylaxis: Plan: Will order SCDs and knee-high CHRISTIANNE stockings Ambulate as tolerated Admission and Anticipated Discharge Date Admission Date: April 13, 2022 Supervising Physician Co-Signing Physician Notes I personally examined the patient and verified all lujan points of history and exam, discussed case, and agree with decision making with Dr Smith. Feeling better, but still does have some degree of nausea. Family present at the bedside. Extensive discussion educating on type 1 diabetes, pathophysiology, pathophysiology and treatment of DKA, and most importantly (and most at length) chronic managementincluding why to care (progressive m icrovascular ischemia) and basal bolus insulin dosing/monitoring. Answered all questions to the best my ability as well as to patient and family's satisfaction. Of note patient's mother is a nurse, father is a piano and organ refinisher physician who also happens to be a type I diabetic on an insulin pump and noted that his most recent A1c was 6.5. Vitals noted, in general he is awake and alert pleasant no distress. HEENT normocephalic atraumatic mucous membranes moist. Breathing unlabored no accessory muscle use good effort. Skin shows no rashes no pallor or icterus. Neuro without focal deficits. DKAresolved continue gentle fluids until nausea has improved/p.o. intake improved Type 1 diabetesextensively educated. Continuing to titrate insulin. Approximately 45 minutes in the room [id number] largely (definitely greater than 50%) spent in education and answering questions. Otherwise as above Subjective Mr. Swift is a 22 y.o. male with PMH of celiac disease and anxiety who presented to the ED on 04/13 with symptoms of excessive thirst/urination and fatigue. He had been experiencing worsening symptoms for the past few weeks and also lost about 20 pounds unintentionally in the same timeframe. 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 Today he states that he is feeling better, states that the dry mouth/thirst and frequent urination have both improved. He admits to feeling tired because he did not get much sleep overnight in the hospital. Denies CP, states that he feels a bit dizzy when he gets out of bed to use the bathroom. States that nausea has improved and he has been able to eat some cereal. Admits to some constipation. Review of Systems Review of Systems: As per HPI Physical Exam Constitutional: WD/WN, vitals as above Eyes: PERRL, conjunctivae normal, anicteric sclerae ENMT: external ear and nose normal, oropharynx normal Neck: normal visual inspection Respiratory: normal respiratory effort, lungs clear to auscultation Cardiovascular: RRR, no murmur, no edema Musculoskeletal: Extremities: extremities normal to inspection Skin: no rashes, warm and dry Psychiatric: A+Ox3, euthymic affect Results & Data Results & Data ([facility]) Vital Signs (Past 12 Hours) Vital Signs Temp Pulse Pulse Resp BP Pulse Ox O2 Del Method 04/14/22 07:21 36.6 C 51 L 18 125/74 98 Room Air 04/14/22 03:00 36.8 C 72 15 119/62 98 Room Air 04/13/22 21:45 67 04/13/22 23:00 37.0 C 57 L 18 112/62 97 Laboratory Results 04/14/22 04/14/22 04/14/22 Range/Units 16:24 11:37 11:37 VBG pH 7.44 H (7.36-7.41) Sodium 134 L (136-145) mmol/L Potassium 4.0 (3.5-5.1) mmol/L Chloride 103 (98-107) mmol/L Carbon Dioxide 25 (21-32) mmol/L Anion Gap 6 (3-11) BUN 11 (6-23) mg/dl Creatinine 0.67 (0.6-1.4) mg/dl Est Cr Clr Drug Dosing 171.7 ml/min Est GFR ( Amer) > 150.0 ml/min Est GFR (Non-Af Amer) 137.4 ml/min BUN/Creatinine Ratio 16.4 (10-20) Glucose 285 H (70-99(Fasting)) mg/dl POC Glucose 139 H (70-99) mg/dl Calcium 8.7 (8.5-10.1) mg/dl Phosphorus < 1.0 L* D (2.5-4.9) mg/dl Magnesium 1.6 L (1.7-2.4) mg/dl 04/14/22 04/14/22 04/14/22 Range/Units 11:27 10:16 07:23 VBG pH (7.36-7.41) Sodium (136-145) mmol/L Potassium (3.5-5.1) mmol/L Chloride (98-107) mmol/L Carbon Dioxide (21-32) mmol/L Anion Gap (3-11) BUN (6-23) mg/dl Creatinine (0.6-1.4) mg/dl Est Cr Clr Drug Dosing ml/min Est GFR ( Amer) ml/min Est GFR (Non-Af Amer) ml/min BUN/Creatinine Ratio (10-20) Glucose (70-99(Fasting)) mg/dl POC Glucose 281 H 351 H* 249 H (70-99) mg/dl Calcium (8.5-10.1) mg/dl Phosphorus (2.5-4.9) mg/dl Magnesium (1.7-2.4) mg/dl 04/14/22 04/14/22 04/14/22 Range/Units 06:34 06:34 05:21 VBG pH 7.35 L (7.36-7.41) Sodium 136 (136-145) mmol/L Potassium 4.2 (3.5-5.1) mmol/L Chloride 107 (98-107) mmol/L Carbon Dioxide 22 (21-32) mmol/L Anion Gap 7 (3-11) BUN 11 (6-23) mg/dl Creatinine 0.71 (0.6-1.4) mg/dl Est Cr Clr Drug Dosing 162.0 ml/min Est GFR ( Amer) > 150.0 ml/min Est GFR (Non-Af Amer) 134.1 ml/min BUN/Creatinine Ratio 15.5 (10-20) Glucose 264 H (70-99(Fasting)) mg/dl POC Glucose 205 H (70-99) mg/dl Calcium 8.7 (8.5-10.1) mg/dl Phosphorus 2.0 L (2.5-4.9) mg/dl Magnesium 1.6 L (1.7-2.4) mg/dl 04/14/22 04/14/22 04/14/22 Range/Units 03:21 03:21 03:12 VBG pH 7.37 (7.36-7.41) Sodium 136 (136-145) mmol/L Potassium 4.3 D (3.5-5.1) mmol/L Chloride 108 H (98-107) mmol/L Carbon Dioxide 23 (21-32) mmol/L Anion Gap 5 (3-11) BUN 12 (6-23) mg/dl Creatinine 0.75 (0.6-1.4) mg/dl Est Cr Clr Drug Dosing 147.4 ml/min Est GFR ( Amer) > 150.0 ml/min Est GFR (Non-Af Amer) 131.1 ml/min BUN/Creatinine Ratio 16.0 (10-20) Glucose 195 H (70-99(Fasting)) mg/dl POC Glucose 164 H (70-99) mg/dl Calcium 8.9 (8.5-10.1) mg/dl Phosphorus 2.5 (2.5-4.9) mg/dl Magnesium 1.8 (1.7-2.4) mg/dl 04/14/22 04/14/22 04/14/22 Range/Units 02:10 01:14 00:44 VBG pH (7.36-7.41) Sodium (136-145) mmol/L Potassium (3.5-5.1) mmol/L Chloride (98-107) mmol/L Carbon Dioxide (21-32) mmol/L Anion Gap (3-11) BUN (6-23) mg/dl Creatinine (0.6-1.4) mg/dl Est Cr Clr Drug Dosing ml/min Est GFR ( Amer) ml/min Est GFR (Non-Af Amer) ml/min BUN/Creatinine Ratio (10-20) Glucose (70-99(Fasting)) mg/dl POC Glucose 160 H 181 H 166 H (70-99) mg/dl Calcium (8.5-10.1) mg/dl Phosphorus (2.5-4.9) mg/dl Magnesium (1.7-2.4) mg/dl 04/14/22 04/13/22 04/13/22 Range/Units 00:02 23:22 23:22 VBG pH 7.39 (7.36-7.41) Sodium 139 (136-145) mmol/L Potassium 3.5 (3.5-5.1) mmol/L Chloride 110 H (98-107) mmol/L Carbon Dioxide 23 (21-32) mmol/L Anion Gap 6 (3-11) BUN 12 (6-23) mg/dl Creatinine 0.75 (0.6-1.4) mg/dl Est Cr Clr Drug Dosing 147.4 ml/min Est GFR ( Amer) > 150.0 ml/min Est GFR (Non-Af Amer) 131.1 ml/min BUN/Creatinine Ratio 16.0 (10-20) Glucose 155 H (70-99(Fasting)) mg/dl POC Glucose 94 (70-99) mg/dl Calcium 9.3 (8.5-10.1) mg/dl Phosphorus 1.6 L (2.5-4.9) mg/dl Magnesium 1.9 (1.7-2.4) mg/dl 04/13/22 04/13/22 04/13/22 Range/Units 23:06 22:17 21:14 VBG pH (7.36-7.41) Sodium (136-145) mmol/L Potassium (3.5-5.1) mmol/L Chloride (98-107) mmol/L Carbon Dioxide (21-32) mmol/L Anion Gap (3-11) BUN (6-23) mg/dl Creatinine (0.6-1.4) mg/dl Est Cr Clr Drug Dosing ml/min Est GFR ( Amer) ml/min Est GFR (Non-Af Amer) ml/min BUN/Creatinine Ratio (10-20) Glucose (70-99(Fasting)) mg/dl POC Glucose 177 H 296 H 313 H* (70-99) mg/dl Calcium (8.5-10.1) mg/dl Phosphorus (2.5-4.9) mg/dl Magnesium (1.7-2.4) mg/dl 04/13/22 04/13/22 04/13/22 Range/Units 20:09 19:04 19:04 VBG pH 7.36 (7.36-7.41) Sodium 137 (136-145) mmol/L Potassium 3.9 (3.5-5.1) mmol/L Chloride 108 H (98-107) mmol/L Carbon Dioxide 20 L (21-32) mmol/L Anion Gap 9 (3-11) BUN 13 (6-23) mg/dl Creatinine 0.82 (0.6-1.4) mg/dl Est Cr Clr Drug Dosing 134.8 ml/min Est GFR ( Amer) 146.5 ml/min Est GFR (Non-Af Amer) 126.4 ml/min BUN/Creatinine Ratio 15.9 (10-20) Glucose 266 H (70-99(Fasting)) mg/dl POC Glucose 281 H (70-99) mg/dl Calcium 8.9 (8.5-10.1) mg/dl Phosphorus 1.7 L (2.5-4.9) mg/dl Magnesium 1.9 (1.7-2.4) mg/dl 04/13/22 04/13/22 04/13/22 Range/Units 19:00 18:09 17:03 VBG pH (7.36-7.41) Sodium (136-145) mmol/L Potassium (3.5-5.1) mmol/L Chloride (98-107) mmol/L Carbon Dioxide (21-32) mmol/L Anion Gap (3-11) BUN (6-23) mg/dl Creatinine (0.6-1.4) mg/dl Est Cr Clr Drug Dosing ml/min Est GFR ( Amer) ml/min Est GFR (Non-Af Amer) ml/min BUN/Creatinine Ratio (10-20) Glucose (70-99(Fasting)) mg/dl POC Glucose 213 H 235 H 214 H (70-99) mg/dl Calcium (8.5-10.1) mg/dl Phosphorus (2.5-4.9) mg/dl Magnesium (1.7-2.4) mg/dl 04/13/22 Range/Units 15:48 VBG pH (7.36-7.41) Sodium 140 (136-145) mmol/L Potassium 4.0 (3.5-5.1) mmol/L Chloride 109 H (98-107) mmol/L Carbon Dioxide 14 L (21-32) mmol/L Anion Gap 17 H (3-11) BUN 16 (6-23) mg/dl Creatinine 0.88 D (0.6-1.4) mg/dl Est Cr Clr Drug Dosing 125.6 ml/min Est GFR ( Amer) 142.3 ml/min Est GFR (Non-Af Amer) 122.8 ml/min BUN/Creatinine Ratio 18.2 (10-20) Glucose 234 H (70-99(Fasting)) mg/dl POC Glucose (70-99) mg/dl Calcium 9.0 (8.5-10.1) mg/dl Phosphorus 2.6 (2.5-4.9) mg/dl Magnesium 2.1 (1.7-2.4) mg/dl Resident Activity Tracking Resident Involvement: Resident Care Provided Care Provided: Adult Hospital Medicine
[2022-04-14] MEDS: ESCITALOPRAM OXALATE 10 MG TAB PO SCH (10:19)
[2022-04-14] MEDS: NICOTINE 21 MG/24 HR TDSY TD SCH (10:19)
[2022-04-14 12:16] LABS: Anion Gap 6 (3-11); BUN Creatinine Ratio 16.4 (10-20); Blood Urea Nitrogen 11 mg/dl (6-23); Calcium 8.7 mg/dl (8.5-10.1); Carbon Dioxide 25 mmol/L (21-32); Chloride 103 mmol/L (98-107); Creatinine Clr Calc Pharmacy 171.7 ml/min; Est GFR (African American) > 150.0 ml/min; Est GFR (Non-African American) 137.4 ml/min; Glucose 285 mg/dl (70-99(Fasting)); Sodium 134 mmol/L (136-145)
[2022-04-14 12:23] LABS: Magnesium 1.6 mg/dl (1.7-2.4); Phosphorus < 1.0 mg/dl (2.5-4.9)
--- NOTE | 2022-04-14 14:48 | Pharmacy Report ---
Pharmacy Glycemic Short Note 2 - Date of Service April 14, 2022 - Glycemic Short BSG Results (Last 24 hours): 04/13/22 04/13/22 04/13/22 14:56 15:48 16:06 Glucose 234 H POC Glucose 266 H 231 H 04/13/22 04/13/22 04/13/22 17:03 18:09 19:00 Glucose POC Glucose 214 H 235 H 213 H 04/13/22 04/13/22 04/13/22 19:04 20:09 21:14 Glucose 266 H POC Glucose 281 H 313 H* 04/13/22 04/13/22 04/13/22 22:17 23:06 23:22 Glucose 155 H POC Glucose 296 H 177 H 04/14/22 04/14/22 04/14/22 00:02 00:44 01:14 Glucose POC Glucose 94 166 H 181 H 04/14/22 04/14/22 04/14/22 02:10 03:12 03:21 Glucose 195 H POC Glucose 160 H 164 H 04/14/22 04/14/22 04/14/22 05:21 06:34 07:23 Glucose 264 H POC Glucose 205 H 249 H 04/14/22 04/14/22 04/14/22 10:16 11:27 11:37 Glucose 285 H POC Glucose 351 H* 281 H OUTPATIENT ANTIDIABETIC REGIMEN: * n/a ASSESSMENT: * New diagnosis DM, started on insulin drip last evening for hyperglycemia. Insulin drip paused at midnight last night as BSGs improving. Was given Lantus 20 units. Fluids changed to 1/2 NS this morning (dextrose removed) as starting on diet * Fasting BSG trending up quickly, now at 249 mg/dL - will split basal BID to allow easier adjustment for today until insulin needs better known. Will give Lantus 10 units x 1 this morning. Will add Lantus 15 units with dinner - this will be a 25% increase in basal from yesterday's dose * Lunch BSG elevated, however morning basal never give until late this morning * Continue stress 3 novolog PLAN FOR INPATIENT GLYCEMIC CONTROL: * Hold outpatient oral diabetes medications * Basal insulin * Lantus 10 units Qam * Lantus 15 units Qpm * Bolus insulin * NovoLog per scale ACHS or Q6hrs while NPO * Goal Range: Low 110 mg/dL - High 140 mg/dL * Correction Factor: 20 mg/dL/unit * Nutritional / Prandial insulin per carb ratio of 1 unit per 7 grams CHO consumed
--- NOTE | 2022-04-14 17:07 | Billing Data ---
Date of Service April 14, 2022 Coding Level of Care Code 13656 Subseq Hosp Care Lvl 3
--- NOTE | 2022-04-14 17:08 | Billing Data ---
Date of Service April 14, 2022 Coding Level of Care Code 75700 Prolonged Care (int'l)
[2022-04-15] MEDS: SODIUM CHLORIDE 0.45 % 1,000 ML IV SCH (03:05)
[2022-04-15] MEDS: INSULIN ASPART PER UNIT SC SCH ×3 (03:35→12:13)
[2022-04-15] MEDS: NICOTINE 21 MG/24 HR TDSY TD SCH (09:17)
[2022-04-15] MEDS: ESCITALOPRAM OXALATE 10 MG TAB PO SCH (09:17)
[2022-04-15 11:41] LABS: Marijuana Quant, GCMS Urine 39 ng/mL (<5)
[2022-04-15] MEDS ORDERED: LANTUS PER UNIT CHARGE SQ SCH (11:45)
--- NOTE | 2022-04-15 12:01 | Electrocardiogram Report ---
Test Reason : Blood Pressure : / mmHG Vent. Rate : 056 BPM Atrial Rate : 056 BPM P-R Int : 138 ms QRS Dur : 118 ms QT Int : 414 ms P-R-T Axes : 045 061 034 degrees QTc Int : 399 ms Sinus bradycardia Incomplete right bundle branch block ST elevation, consider early repolarization Borderline ECG When compared with ECG of 14-APR-2022 05:36, No significant change was found Confirmed by Corby Curry ([id number]) on 04/15/2022 12:00:52 PM Referred By: REFERRED SELF Confirmed By:Corby Curry
--- NOTE | 2022-04-15 16:56 | Billing Data ---
Date of Service April 15, 2022 Coding Level of Care Code D/C DAY MANAGEMENT >30 MINS
--- NOTE | 2022-04-15 17:19 | Discharge Summary ---
Date of Service April 15, 2022 Admission HPI Per Admitting Provider Attending: Dr. 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 Over the last 2 weeks he has noticed that he has had increased thirst and has felt nauseous. He presented today and was found to have hyperglycemia with a BSG above 400. Patient has no history of diabetes mellitus but his father is a type I diabetic. Patient does state that he has celiac disease and that he also had previous history of thyroid issues but is not on any thyroid replacement. Patient has no other significant past medical history. He is fit with a BMI of 18.9 kg/m and is weight appropriate. He goes to the gym daily for routine exercise. He states that he follows a fairly strict diet due to celiac disease. He denies any Crohn's disease or other gastroenterological disorder. He has not any prescribed diet but does watch what he eats. Patient has no significant surgical history. Patient has no prior history of illicit drug use other than marijuana which he vapes on a daily basis. Patient is also a previous smoker who has transition to vaping nicotine with 20 "rips" per day. Patient has no acute complaints other than extreme thirst and dry mouth. He denies any chest pain or tightness. He denies palpitations. He is unaware of any cardiac arrhythmia. He has no significant neuropathy. He denies history of cardiomyopathy, nephropathy, retinopathy. Patient has no other acute complaints at this time. Admission Exam Per Admitting Provider GENERAL : No acute distress. Pleasant. Talkative. EYES: No icterus, gaze conjugate. Pupils are equal but dilated. They do constrict slightly. NOSE: No evidence of epistaxis MOUTH: No lesions or candidiasis. Mucosa is moist. Tongue is midline. Patient appears to have good oral hygiene NECK: Supple. No stridor or cervical lymphadenopathy LUNGS: CTA B/L, no wheezes, rales or rhonchi. Good inspirational effort HEART: Regular, rate controlled ABDOMEN: Soft, NT, ND, BS Present. No rebound tenderness or guarding EXTREMITIES: No LE edema, pedal pulses intact and equal bilaterally NEURO: A&OX3. Pupils equal round and reactive to light. Tongue is midline. All 4 extremities move spontaneously. Patient with 4/4 reflexes to the brachial radialis and patellar tendons. Strength is equal and appropriate bilaterally. Toes are downgoing bilaterally. No slurred speech. Cranial nerves II through XII grossly intact without focal deficit. Patient has good sensation to upper and lower extremities. Principal Diagnosis New-onset Type 1 Diabetes Discharge Exam Constitutional WD/WN, vitals as above Eyes PERRL, conjunctivae normal, anicteric sclerae ENMT external ear and nose normal, oropharynx normal Neck normal visual inspection Respiratory normal respiratory effort, lungs clear to auscultation Cardiovascular RRR, no murmur, no edema Musculoskeletal Extremities: extremities normal to inspection Skin no rashes, warm and dry Psychiatric A+Ox3, euthymic affect Discharge Data Allergies Allergy/AdvReac Type Severity Reaction Status Date / Time pollen extracts Allergy SNEEZING, Verified 04/13/22 15:21 ITCHY EYES gluten AdvReac celiac Verified 04/13/22 15:20 disease Laughing gas AdvReac Severe Nausea Uncoded 04/13/22 15:21 Consultations 04/13/22 13:15 ED Decision to Admit Stat Diabetes Follow up Diabetes Follow-up Needed for HgbA1c >9%,Newly Diagnosed Diabetes Hospital Course (1) DKA, type 1: 22-year-old male this a [employer] student presents with hyperglycemia and weakness. He denies a history of diabetes mellitus but presents with a hemoglobin A1c of 10.2 and elevated glucose at over 400. Patient has a history of celiac disease and nicotine dependence via vaping. He also admits to daily marijuana usage by vaping. Patient has no significant prior surgical history. No other significant past medical history other than anxiety. Patient is on escitalopram for anxiety. Otherwise, no daily medications. Patient's father has diabetes mellitus type 1. No other first-degree relatives with diabetes that the patient is aware of. The patient initially was feeling weak with nausea, fatigue, and some blurry vision. He was treated with IV fluids and electrolytes/blood sugars were monitored closely during his admission. Insulin regimen was started and adjusted during his stay. He had some trending downward phosphorous levels (<1) but after fluids and eating, it improved to 2.4. We encouraged oral intake and after approximately 36 hours of rehydration and insulin treatment, the patient had an increased appetite and states that his blurry vision is improving. He met with childbirth educator/nutrition and we also spent time teaching and discussing his plan for the next few weeks and for follow up. Patient will establish care with local PCP and consider need for endocrinology follow-up on discharge as an outpatient (2) Anxiety: Patient with use of E citalopram 10 mg daily. We will continue this during this hospital stay Patient uses nicotine and marijuana for anxiety relief on a daily basis Continue supportive dialogue of encouragement (3) Marijuana user: Patient vapes marijuana daily. Encourage patient to abstain from illicit drug use (4) Nicotine dependence due to vaping tobacco product: Patient was previously a cigarette smoker. He is transition to vaping Currently inhales 20 reps per day Will prescribe nicotine patch 21 mg daily to be removed each night HS Encourage complete abstinence of nicotine products (5) Celiac disease: Patient not on steroids or any other medicinal management of celiac disease Once patient can transition to orals will list for gluten-free diet Continue outpatient management (6) DVT prophylaxis: Will order SCDs and knee-high CHRISTIANNE stockings Ambulate as tolerated Total Time Total Time Spent Total Time Spent (In Minutes): >30 Discharge Plan Discharge Items Patient Disposition: Home - Self-Care Reason For Visit: DKA, HYPERGLYCEMIA Discharge Diagnosis: New-onset Type 1 Diabetes Activity: Per Instructions section Non-emergency contact: Primary Care Provider Call non-emergency contact if: you have any medication questions and your symptoms worsen Follow-up/Referrals: [facility] [Primary Care Provider] - Madie Smith DO [Resident] - Diet: Carb Count or DM1 Addtl Attending Provider Instructions: DKA (Diabetic Ketoacidosis) * This is a hyperglycemic/hyperosmolar state that occurs as a result of insufficient insulin in the body. In your situation, this was due to your new- onset type 1 diabetes diagnosis. This situation of high blood sugar and dehydration is treated by rehydration with IV fluids while monitoring the blood sugar and electrolyte levels. Your DKA was resolved with treatment of IV fluids and initiating your insulin. New-Onset Type 1 Diabetes * Type 1 Diabetes develops when your immune system goes rogue and damages/destroys the beta cells in your pancreas that produce and secrete insulin. Insulin works by telling the body to take up glucose in the bloodstream to be used for energy. When there is not enough insulin, the glucose remains in your bloodstream and leads to high blood sugar levels. * We discussed some of the reasons why it is important to get good control over your blood sugar levels. This is because over years of inadequate blood sugar control, there can be permanent damage that is done to the blood vessels in your body including macrovascular complications (heart attack, stroke, heart disease) and microvascular complications (nerve damage/neuropathy, kidney and retina damage). Checking Your Blood Sugar * To start out, you will check your blood sugar 4 times per day. 1 time when you get up in the morning, and ideally the other 3 times would be about two hours after a meal to "check your work". This will be easier once you are able to get a continuous glucose monitor (ex. Dexcom), as you will always have access to your current blood sugar level. * There may be other times that you need to check your blood sugar, including if you start to feel "off" with weakness/sweating/dizziness, etc. Then you can utilize the 15-15 rule you were taught. As we discussed, if you are alone or feel "low" very suddenly, you can eat something first before you check your level. * Your goal for blood sugar levels should be roughly 80-130 for preprandial readings (before you've eaten) and less than 180 for postprandial readings (after you've eaten). Hemoglobin A1C * Hemoglobin A1C is a test that provides a value indicating the "average" blood sugar level over the past 3 months. This is because red blood cells contain hemoglobin which cling onto sugar in the bloodstream, and those red blood cells have a lifespan of about 3 months. Therefore the Hemoglobin A1c shows how much sugar has been attached to the red blood cells. * The goal for your A1C is less than 7%. Upon admission to the hospital, your A1C was 10.2%. Since you were just diagnosed with type 1 diabetes and initiating an insulin regimen we expect that your A1C will improve and decrease over time with your use of insulin. Insulin * There are 2 main types of insulin that you will be using: Glargine (Lantus) and Lispro (Humalog) * Glargine/Lantus is the long acting insulin that you will take every morning a fter you wake up. It takes about 2 hours for glargine to start working, but as a "basal" dose it will continue to work throughout the entire day. As we discussed, the basal dose is about 50% of the total number of insulin units you should take in a day. For now, you will be started on 25 units of glargine/lantus in the mornings. * Lispro/Humalog is the short acting insulin that you take around 10 minutes before each meal. The remaining 50% of the total insulin units for the day (again about 25) will be split among the number of meals you have. For example, if you planned to have 3 meals per day, the remaining 25 unites of insulin would be split at around 8 or 9 units of lispro/humalog for each breakfast, lunch, and dinner. This is where it is important to "check your work" and check your blood sugar about 2 hours after the meal. Keeping track of what you ate for the meal, how much insulin you took, and then what your blood sugar was at 2 hours will help guide you to know how much insulin to take the next time you eat a similar meal. Follow Up * It will be important to follow up with a doctor to check in on your progress and adjust your insulin as appropriate. For now we are planning on following up with you when you return to [place] in mid-April. Pending Studies at Discharge: No Stand-Alone Forms: My [facility], Smoking Cessation Medications and DC Order Prescriptions: New insulin aspart U-100 [Novolog Flexpen U-100 Insulin] 100 unit/mL (3 mL) insulin pen 8 unit subcut AC Qty: 15 0RF insulin glargine [Lantus Solostar U-100 Insulin] 100 unit/mL (3 mL) insulin pen 25 unit subcut QAM Qty: 15 0RF Continued acetaminophen [Tylenol] 325 mg Tablet 650 mg PO QID PRN (Reason: Pain) escitalopram oxalate 10 mg tablet 10 mg PO DAILY Protein Powder 1 ea PO DIRECTED Rx Instructions: After workouts. Discharge Orders: Discharge Order (Routine); Ordered 04/15/22 Ordered By: Madie Marino/Other Patient Handouts: High Blood Sugar (Hyperglycemia), Insulin How To Use Where Inject, Blood Sugar Check Steps Admission Data Admit Date/Time: 04/13/22 14:48 Attending Provider: Kyler Rivera Admit Provider: Johan Amin Primary Care Provider: [facility] Other Providers: Johan Amin Other Interventions: Discharge Summary Assessment (RN) Last Done: 04/15/22 14:02 Supervising Physician Co-Signing Physician Notes I personally examined the patient and verified all lujan points of history and exam, discussed case, and agree with decision making with Dr Smith. Feeling better, and feels up to going home. Answered all questions to the best my ability as well as to patient and family's satisfaction. he is nervously confident he'll do OK. had issues ERx for insulin - personally called pharmacy/talked w pharmacist to ensure no loose ends. Vitals noted, in general he is awake and alert pleasant no distress. HEENT normocephalic atraumatic mucous membranes moist. Breathing unlabored no accessory muscle use good effort. Skin shows no rashes no pallor or icterus. Neuro without focal deficits. DKAresolved Type 1 diabetesextensively educated. basal bolus insulin. outpt endocrine referral, close PCP f/u. Otherwise as above
== END 2022-04-15 14:03 | disposition home or self-care (01) | DRG 639 ==
LOC: ED 10:40 → 2E 14:48 → SUATTDRO 14:48 → 2E 15:36